=== PATIENT | female | born 1975 | race Caucasian/White ===

== ENCOUNTER → 2025-06-02 15:33 | Outpatient (REF) | payer OTHER, SELFPAY | LOC: WDC 15:33 | PROVIDERS: ATTENDING PHYSICIAN Nurse Practitioner | DX: Z12.31 Encounter for screening mammogram for malignant neoplasm of breast (principal) | CPT/HCPCS: 77063; 77067 ==

== ENCOUNTER → 2025-10-06 20:22 | Outpatient (REF) | payer OTHER, SELFPAY | LOC: MRI 3T 20:22 | PROVIDERS: ATTENDING PHYSICIAN Nurse Practitioner Family; FAMILY PHYSICIAN Nurse Practitioner | DX: D35.2 Benign neoplasm of pituitary gland (principal) | CPT/HCPCS: 70553; A9575 ==